=== PATIENT | female | born 1970 | race African-American/Black ===

== ENCOUNTER 2016-11-21 11:29 | Emergency (ER) | payer OTHER ==
[~2016-11-21] VITALS: Ht 172.7 cm; Wt 106.6 kg
[2016-11-21] MEDS ORDERED: TROKENDI XR100 MG PO (15:58)
[2016-11-21 16:39] VITALS: BP 121/75
== END 2016-11-21 16:39 | disposition home or self-care (01) ==
LOC: RME 11:29 → EME 11:29 → RME 16:39
DX: G43.909 Migraine, unspecified, not intractable, without status migrainosus (principal)
CPT/HCPCS: 99281; 99283; J1100; J1200; J1885; J7030